=== PATIENT | female | born 1940 | race Two or more races ===

== ENCOUNTER → 2021-10-03 | Emergency (ER) | payer OTHER ==
[~2021-10-03] VITALS: Ht 154.9 cm; Wt 49.9 kg
[~2021-10-03] MED LIST: DICLOFENAC SODI50 MG PO; EXELON1 EAC1; NAMENDA10 MG; SYNTHROID50 MCG; TRAZODONE HCL50 MG; ZOLOFT25 MG
== END | disposition home or self-care (01) ==
LOC: ER 18:19
DX: S32.312A Displaced avulsion fracture of left ilium, initial encounter for closed fracture (principal); R10.2 Pelvic and perineal pain; G30.8 Other Alzheimer's disease; F02.80 Dementia in other diseases classified elsewhere, unspecified severity, without behavioral disturbance, psychotic disturbance, mood disturbance, and anxiety; W18.09XA Striking against other object with subsequent fall, initial encounter; Y93.89 Activity, other specified; Y92.89 Other specified places as the place of occurrence of the external cause; Y99.8 Other external cause status